=== PATIENT | male | born 1965 | race Caucasian/White ===

== ENCOUNTER 2017-08-27 06:26 | Day surgery (SDC) | payer OTHER ==
--- NOTE | 2017-08-26 11:26 | PCM.PREANE ---
Preanesthetic Assessment - Anesthesia/Transfusion/Family Hx Anesthesia History: Prior Anesthesia Without Reaction Family History of Anesthesia Reaction: No Transfusion History: No Prior Transfusion(s) Intubation History: Unknown - Review of Systems Pulmonary: No Symptoms Cardiovascular: No Symptoms Gastrointestinal: No Symptoms (GERD/PUD) Neurological: No Symptoms Other: Reports: None - Physical Assessment NPO Status Date: 08/26/17 NPO Status Time: 20:30 Pulse: 66 O2 Sat by Pulse Oximetry: 97 Respiratory Rate: 16 Blood Pressure: 126/85 Temperature: 36.6 C Height: 1.83 m Weight: 92.986 kg ASA Class: 2 Mental Status: Alert & Oriented x3 Airway Class: Mallampati = 2 Dentition: Reports: Normal Dentition, Bridge, Caries Thyro-Mental Finger Breadths: 3 Mouth Opening Finger Breadths: 3 ROM/Head Extension: Full Lungs: Clear to Auscultation, Normal Respiratory Effort Cardiovascular: Regular Rate, Regular Rhythm, No Murmurs - Lab Values: MRSA screen: negative - Imaging/EKG Impressions: CXR: negative EKG: NSR rate= 67 - Allergies Allergies/Adverse Reactions: Allergies Allergy/AdvReac Type Severity Reaction Status Date / Time No Known Allergies Allergy Verified 08/26/17 12:03 - Anesthesia Plan Pre-Op Medication Ordered: None - Acknowledgements Anesthesia Type Planned: SAVANAH (and MAC) Pt an Appropriate Candidate for the Planned Anesthesia: Yes Alternatives and Risks of Anesthesia Discussed w Pt/Guardian: Yes Pt/Guardian Understands and Agrees with Anesthesia Plan: Yes PreAnesthesia Questionnaire Other Gastrointestinal History: possible peptic ulcer, doesn't bother the patient at all currently Other Endocrine/Metabolic History: prediabetic Other Dermatologic History: laser tatoo removal - SUBSTANCE USE Smoking Status *Q: Former Smoker Tobacco Use Within Last Twelve Months: Cigarettes Days Per Week of Alcohol Use: 0 Recreational Drug Use History: No - HOME MEDS Home Medications: Home Meds Pantoprazole Sodium [Protonix] 40 mg PO DAILY 08/26/17 [History] Acetaminophen/HYDROcodone [[place] 325-5 MG] 1 - 2 tab PO Q6H PRN #10 tablet 08/27 [Rx] - CURRENT (IN HOUSE) MEDS Current Meds: Current Medications Lactated Ringer's (Ringers, Lactated) 1,000 mls @ 125 mls/hr IV ASDIRECTED MU Stop: 08/27/17 23:00 Lidocaine/Sodium Bicarbonate (Buffered Lidocaine 1% In Ns 8.4%) 0.25 ml IDERM ONETIME PRN PRN Reason: Prior to IV Start Stop: 08/27/17 18:00 Sodium Chloride (Saline Flush) 10 ml FLUSH ASDIRECTED PRN PRN Reason: Keep Vein Open Stop: 08/27/17 18:00
[~2017-08-27 06:26] MED LIST: Lactated Ringers 1,000 ML IV SCH; Lidocaine 1%/Sod Bicarbonate in NS 8.4% 1 ML Syringe IDERM PRN; Sodium Chloride 0.9% 10 ML Syringe FLUSH PRN
[2017-08-27] MEDS ORDERED: Lidocaine 2% 100 MG/5 ML Syringe ONE (06:27)
[2017-08-27] MEDS ORDERED: Dexamethasone 4 MG/ML 5 ML MDV ONE (06:27)
[2017-08-27] MEDS ORDERED: Sodium Bicarbonate 8.4% 50 MEQ/50 ML SDV ONE (06:27)
[2017-08-27] MEDS ORDERED: ceFAZolin 1 GM Vial ONE (06:27)
[2017-08-27] MEDS ORDERED: Lidocaine 0.5% 50 ML SDV ONE (06:27)
[2017-08-27] MEDS ORDERED: Ondansetron 4 MG/2 ML SDV ONE (06:27)
[2017-08-27] MEDS ORDERED: fentaNYL 100 MCG/2 ML SDV ONE (06:28)
[2017-08-27] MEDS ORDERED: Propofol 200 MG/20 ML SDV ONE (06:28)
[2017-08-27] MEDS ORDERED: Midazolam 1 MG/ML 2 ML SDV ONE (06:29)
[2017-08-27] MEDS ORDERED: Ondansetron 4 MG/2 ML SDV IVPUSH PRN (07:33)
[2017-08-27] MEDS ORDERED: diphenhydrAMINE 50 MG/ML SDV IVPUSH PRN (07:33)
[2017-08-27] MEDS ORDERED: fentaNYL 100 MCG/2 ML SDV IVPUSH PRN (07:33)
[2017-08-27] MEDS ORDERED: Bupivacaine 0.25% 10 ML SDV ONE (07:54)
[2017-08-27 08:06] VITALS: BP 105/85
--- NOTE | 2017-08-27 08:06 | PCM48HPAN ---
Post Anesthesia Note - EVALUATION WITHIN 48HRS OF ANESTHETIC Vital Signs in Normal Range: Yes Patient Participated in Evaluation: Yes Respiratory Function Stable: Yes Airway Patent: Yes Cardiovascular Function Stable: Yes Hydration Status Stable: Yes Pain Control Satisfactory: Yes Nausea and Vomiting Control Satisfactory: Yes Mental Status Recovered: Yes Pulse Rate: 52 SaO2: 96 Resp Rate: 11 Temperature: 36.6 C Blood Pressure: 105/85 Pulse Rate: 52
--- NOTE | 2017-08-30 17:50 | PCM.OPNOTE ---
- General Post-Op/Procedure Note Date of Surgery/Procedure: 08/27/17 Operative Procedure(s): left wrist volar ganglion excicion Pre Op Diagnosis: left wrist volar ganglion Post-Op Diagnosis: Same Anesthesia Technique: MAC, Regional Block (solomon) Primary Surgeon: Brent Chapin Anesthesia Provider: Yamel Cho Supervisor Belt And Link Assembly: Rita Wilkes in mLs: 5 Complications: None Condition: Good
--- NOTE | 2017-08-30 18:54 | OR ---
DATE OF OPERATION: 08/27/2017 SURGEON: Brent Chapin MD OPERATION PERFORMED: Left wrist volar ganglion excision. PREOPERATIVE DIAGNOSIS: Left wrist volar ganglion. POSTOPERATIVE DIAGNOSIS: Left wrist volar ganglion. ANESTHESIA: Regional [place] block. ANESTHESIA PROVIDER: Yamel Cho CRNA GENERAL CLEANER: Rita Wilkes PA-C ESTIMATED BLOOD LOSS: Less than 5 mL. COMPLICATIONS: None. CONDITION: Stable. DESCRIPTION OF PROCEDURE: The patient was identified in the preop holding area. Proper site was marked and identified by the surgeon. The patient was taken back to the operating theater, where after adequate anesthesia, the patient's left upper extremity was sterilely prepped and draped in the usual sterile fashion. OR time-out was performed. The patient received 2 g of IV Ancef. At this time, a longitudinal incision was made over the volar wrist ganglion. This was taken to the stalk. It was noted that the ganglion was coming from the FCR tendon sheath at this time and did not involve the radial artery. At this time, it was taken all the way back to the stalk involving the tendon sheath and it was excised en bloc. At this time, it was found to be adequately resected. Adequate saline was irrigated through the wound. A 4-0 nylon simple suture was used for closure of the skin. The patient was placed in a sterile soft dressing and was sent to PACU in a stable condition. MMODAL /[id number]
== END 2017-08-27 08:33 | disposition home or self-care (01) ==
LOC: JD.SDS 06:26
PROVIDERS: ATTEND Orthopaedic Surgery
DX: M67.432 Ganglion, left wrist (principal)
CPT/HCPCS: 25111; J0690; J1100; J2250; J2405; J3010; J7120; J2704

== ENCOUNTER 2018-01-02 00:21 | Emergency (ER) | payer BC ==
[2018-01-02 00:29] VITALS: BP 141/81
--- NOTE | 2018-01-02 00:33 | EDM.PDOC ---
ED HPI GENERAL MEDICAL PROBLEM - General Chief Complaint: Respiratory Problem Stated Complaint: cough Time Seen by Provider: 01/02/18 00:32 Source of Information: Reports: Patient History Limitations: Reports: No Limitations - History of Present Illness INITIAL COMMENTS - FREE TEXT/NARRATIVE: 51-year-old male presents to the ED due to severe paroxysmal cough to the point of emesis and near blacking out. He's been coughing intermittently for almost 3 months. It seems to been preceded by a viral upper respiratory tract infection even perhaps influenza. He will sometimes get up a clear mucus. He is on Flonase for nasal polyposis and eustachian tube dysfunction. It occurs after he is talking for little bit too long or if he tries to work out a brief is in faster he will develop severe paroxysmal cough that forces him to quit his activity. He is particularly bad tonight and he can't stop it. No fever no chills. He has no history of asthma. He has [facility] he has not had a chest x-ray in this last 3 months. Onset: Unknown/Unsure (Has been coughing intermittently with severe paroxysmal cough for more than 3 months) Duration: Week(s):, Chronic, Getting Worse, Intermittent Location: Reports: Chest (severe intermittent paro) Quality: Reports: Other Severity: Severe (Paroxysmal nonproductive cough) Improves with: Reports: None Worsens with: Reports: Other Context: Denies: Activity (Trying to work out breathing fast even talking for a period of time will set off the cough. A chronic irritation of irritant receptors upper airway), Exercise, Lifting Associated Symptoms: Reports: Cough, cough w sputum (Or paroxysmal cough), Other (Suffering from tinnitus.). Denies: No Other Symptoms, Confusion, Chest Pain ( occasional production of white phlegm), Diaphoresis, Fever/Chills, Headaches, Loss of Appetite, Malaise, Nausea/Vomiting, Rash, Seizure, Shortness of Breath, Syncope - Related Data Allergies Allergy/AdvReac Type Severity Reaction Status Date / Time No Known Allergies Allergy Verified 01/02/18 00:30 Home Meds: Home Meds Fluticasone Propionate [Flovent HFA 110 MCG] 2 puff INH TID #1 inhaler 01/02/18 [Rx] Past Medical History HEENT History: Reports: Hard of Hearing, Impaired Vision, Other (See Below) Other HEENT History: parotid gland neoplasm, pseudophakia of left eye, left eye lens implant, bilateral hearing aids. Has bilateral severe tinnitus. Cardiovascular History: Reports: None Respiratory History: Reports: None Gastrointestinal History: Reports: PUD Other Gastrointestinal History: possible peptic ulcer, doesn't bother the patient at all currently Genitourinary History: Reports: None NURSERY SUPERVISOR History: Reports: None Musculoskeletal History: Reports: Other (See Below) Other Musculoskeletal History: left wrist ganglion cyst Neurological History: Reports: None Psychiatric History: Reports: None Endocrine/Metabolic History: Reports: None Other Endocrine/Metabolic History: prediabetic Hematologic History: Reports: None Immunologic History: Reports: None Oncologic (Cancer) History: Reports: None Dermatologic History: Reports: None Other Dermatologic History: laser tatoo removal - Past Surgical History Head Surgeries/Procedures: Reports: None HEENT Surgical History: Reports: Adenoidectomy, Tonsillectomy Cardiovascular Surgical History: Reports: None Respiratory Surgical History: Reports: None GI Surgical History: Reports: Colonoscopy Male Surgical History: Reports: Vasectomy Neurological Surgical History: Reports: None Musculoskeletal Surgical History: Reports: None Oncologic Surgical History: Reports: None Dermatological Surgical History: Reports: None Social & Family History - Caffeine Use Caffeine Use: Reports: Coffee - Living Situation & Occupation Living situation: Reports: Occupation: Employed ED ROS GENERAL - Review of Systems Review Of Systems: See Below Constitutional: Denies: Fever, Chills, Malaise, Weakness, Fatigue, Decreased Appetite, Weight Loss HEENT: Reports: Hearing Loss (Tinnitus), Sinus Problem (Chronic allergic rhinitis), Other Respiratory: Reports: Cough. Denies: No Symptoms, Shortness of Breath, Wheezing , Pleuritic Chest Pain (Dear paroxysmal cough with minimal sputum production for 3 months), Hemoptysis, Other Cardiovascular: Reports: No Symptoms Endocrine: Reports: No Symptoms GI/Abdominal: Reports: No Symptoms : Reports: No Symptoms Musculoskeletal: Reports: No Symptoms Skin: Reports: No Symptoms Neurological: Reports: No Symptoms Psychiatric: Reports: No Symptoms Hematologic/Lymphatic: Reports: No Symptoms ED EXAM, GENERAL - Physical Exam Exam: See Below Exam Limited By: No Limitations General Appearance: Alert, WD/WN, No Apparent Distress, Other (Does sound nasally congested however.) Eye Exam: Bilateral Eye: Normal Inspection (Previous left cataract extraction and intraocular lens implant) Ears: Other (Has a left serous otitis media. It is retracted suggesting eustachian tube dysfunction. It is scarred from previous tympanostomy tube insertion) Nose: Other (Nasal congestion particularly on the left side with turbinate swelling compatible with allergic rhinitis. No nasal polyp identified. There is some blood on the septum in the left anterior nares.) Throat/Mouth: Normal Inspection, Normal Lips, Normal Teeth, Normal Oropharynx Head: Atraumatic, Normocephalic Neck: Normal Inspection, Supple, Non-Tender, Full Range of Motion. No: Lymphadenopathy (L), Lymphadenopathy (R) Respiratory/Chest: No Respiratory Distress, Lungs Clear, Normal Breath Sounds, No Accessory Muscle Use Cardiovascular: Normal Peripheral Pulses, Regular Rate, Rhythm, No Edema, No Gallop, No Murmur GI/Abdominal: Normal Bowel Sounds, Soft, Non-Tender, No Organomegaly Extremities: Normal Inspection, Normal Range of Motion, Non-Tender, No Pedal Edema Neurological: Alert, Oriented, CN II-XII Intact, Normal Cognition, Normal Gait Psychiatric: Normal Affect, Normal Mood Skin Exam: Warm, Dry, Intact, Normal Color, No Rash Course - Vital Signs Last Recorded V/S: Last Vital Signs Temp 37.1 C 01/02/18 00:27 Pulse 67 01/02/18 00:27 Resp 16 01/02/18 00:27 BP 141/81 H 01/02/18 00:27 Pulse Ox 97 01/02/18 00:56 - Orders/Labs/Meds Meds: Medications Discontinued Medications Generic Name Dose Route Start Last Admin Trade Name Freq PRN Reason Stop Dose Admin Albuterol/Ipratropium 3 ml 01/02/18 00:43 01/02/18 00:54 Duoneb 3.0-0.5 Mg/3 Ml NEB 01/02/18 00:44 3 ml ONETIME ONE Administration Budesonide 0.5 mg 01/02/18 00:44 01/02/18 00:54 Pulmicort NEB 01/02/18 00:45 0.5 mg ONETIME ONE Administration Fluticasone Propionate 1 gm 01/02/18 01:34 01/02/18 01:51 Flovent Hfa 110 Mcg INH 01/02/18 01:35 Not Given ONETIME ONE Mometasone Furoate/Formoterol Fumar 2 puff 01/02/18 01:45 01/02/18 01:51 Dulera 200-5 Mcg IH 01/02/18 01:46 2 puff ONETIME ONE Administration - Radiology Interpretation Free Text/Narrative:: 52-year-old male presents the ED due to severe paroxysmal cough. This particular a bed tonight but has been going on for over 3 months. Seemed to start after a viral upper SPECT tract infection possibly influenza in October. He is coughing intermittently and severely at times. Cough syrup the point of near emesis. There is a component of laryngospasm metastases times. Clinically he has allergic rhinitis and is using Flonase for this. There is no obvious postnasal drip at this time but this is the likely source of his irritation of his upper airway. It may have been started out as a viral infection or perhaps even pertussis. The rate he is coughing paroxysmal. Plan two-view chest x-ray to be done. Plan will be to give him a DuoNeb and Pulmicort inhalational treatment will be a nebulizer at this time. - Re-Assessments/Exams Free Text/Narrative Re-Assessment/Exam: 01/02/18 01:36 two-view chest x-ray is within normal limits. Patient feels that inhalational treatment was mildly helpful. Lantus to place him on an inhaled corticosteroid until he stops coughing. If he is still coughing paroxysmal he in 3 weeks' time then ear nose and throat evaluation is indicated. Will be placed on Flovent 110 g per puff 2 puffs 3 times daily until not coughing at all for 3 days then reduce to 2 times daily for 2 days and if not coughing reduce to once daily for 2 days and off. 01/02/18 01:50 patient has never used an inhaler before. I will have respiratory therapist teach him how to use a handheld nebulizer. Apparently Flovent is no longer available in our hospital pharmacy. Therefore we'll substitute to Dulera--2 puffs 3 times daily until gone and then purchase a Flovent inhaler to finish up treatment plan Departure - Departure Time of Disposition: 01:37 Disposition: Home, Self-Care 01 Condition: Fair Clinical Impression: Chronic coughing, Chronic allergic rhinitis, Acute serous otitis media of left ear without rupture - Discharge Information Prescriptions: Fluticasone Propionate [Flovent HFA 110 MCG] 2 puff INH TID #1 inhaler Instructions: Cough, Adult, [id number] Referrals: PCP,None [Primary Care Provider] - Forms: ED Department Discharge Additional Instructions: Evaluation the emergency room primarily due to severe paroxysmal cough that is been going on for over 3 months. Minimal sputum production. Clinically you do have a component of rhinitis with suspect mild postnasal drip but not enough to cause this severe paroxysmal cough. Two-view chest x-ray was done to make sure the lungs were okay and no lesions or abnormalities were identified. Clinically you have something his irritated your receptors in her upper airway called irritant receptors. These cause you to have intermittent severe paroxysmal coughing events. The treatment is to use a corticosteroid inhaler call Flovent 2 puffs 3 times daily until you are no longer coughing for at least 3-4 days. My plan was to provide a Flovent inhaler to the hospital pharmacy but is no longer available in the hospital. Substitution was made with Dulera inhlaer-- use this 2 puffs 3 times daily until gone and then purchase a Flovent inhaler per prescription provided. After this may reduce to 2 puffs twice daily and continue this for a couple of days if no further cough reduced to once daily for another 2-3 days and if no coughing may stop the inhaler. The deal is that you are no longer experiencing paroxysmal coughing after 3 weeks of use of inhaler if needed this long. If you are still coughing paroxysmal he after this timeframe and ENT consultation is indicated.
[2018-01-02] MEDS ORDERED: Albuterol/Ipratropium 3.0-0.5 MG/3 ML Neb Soln NEB ONE (00:43)
[2018-01-02] MEDS ORDERED: Budesonide 0.5 MG/2 ML Neb Susp NEB ONE (00:44)
[2018-01-02] MEDS ORDERED: Fluticasone Propionate 110 MCG/Puff 12 GM Inhaler INH ONE (01:34)
[2018-01-02] MEDS ORDERED: Formoterol/Mometasone 200-5 MCG 8.8 GM Inhaler IH ONE (01:45)
--- NOTE | 2018-01-03 07:48 | CR ---
Chest: Two views of the chest were obtained. Comparison: No prior chest x-ray. Heart size and mediastinum are normal. Lungs are clear. Slight degenerative change is noted within the spine. Impression: 1. Incidental finding. Nothing acute is appreciated on two-view chest x-ray. Diagnostic code #2
== END 2018-01-02 01:55 | disposition home or self-care (01) ==
LOC: JD.ED 00:21
DX: H65.02 Acute serous otitis media, left ear (principal); J30.9 Allergic rhinitis, unspecified
CPT/HCPCS: 71046; 94640; 94664; 99284; A9270; 99283